=== PATIENT | female | born 1970 | race Native Hawaiian/Other Pacific Islander ===

== ENCOUNTER 2019-09-05 11:01 | Outpatient (CLI) | payer OTHER | END 2019-09-05 21:08 | disposition home or self-care (01) | LOC: RAD 11:01 | DX: M25.511 Pain in right shoulder (principal) ==

== ENCOUNTER 2020-01-20 12:21 | Outpatient (CLI) | payer OTHER | END 2020-01-20 23:31 | disposition home or self-care (01) | LOC: LABW 12:21 | DX: R50.9 Fever, unspecified (principal) | CPT/HCPCS: 87502 ==

== ENCOUNTER 2020-03-20 09:17 | Outpatient (CLI) | payer OTHER ==
[2020-03-20 10:32] LABS: PLATELET COUNT 37 K/uL (152-353)
[2020-03-20 10:49] LABS: POTASSIUM 3.6 mmol/L (3.6-5.2); SODIUM 138 mmol/L (136-145)
== END 2020-03-20 19:08 | disposition home or self-care (01) ==
LOC: LABW 09:17
PROVIDERS: Internal Medicine Endocrinology, Diabetes & Metabolism
DX: E05.90 Thyrotoxicosis, unspecified without thyrotoxic crisis or storm (principal); R00.0 Tachycardia, unspecified; R76.8 Other specified abnormal immunological findings in serum; E55.9 Vitamin D deficiency, unspecified
CPT/HCPCS: 36415; 80053; 82306; 84439; 84443; 84445; 84480; 85027

== ENCOUNTER 2020-04-17 13:20 | Outpatient (CLI) | payer OTHER ==
[2020-04-17 13:52] LABS: POTASSIUM 4.4 mmol/L (3.6-5.2)
[2020-04-17 15:08] LABS: PLATELET COUNT 39 K/uL (152-353)
== END 2020-04-17 20:37 | disposition home or self-care (01) ==
LOC: LABW 13:20
PROVIDERS: Internal Medicine Medical Oncology
DX: D61.818 Other pancytopenia (principal); R16.2 Hepatomegaly with splenomegaly, not elsewhere classified; R53.81 Other malaise; E53.8 Deficiency of other specified B group vitamins
CPT/HCPCS: 36415; 80053; 85007; 85027

== ENCOUNTER 2020-04-24 14:48 | Emergency (ER) | payer OTHER ==
[~2020-04-24] VITALS: Ht 152.4 cm; Wt 63.5 kg
[2020-04-24 14:54] VITALS: BP 131/71; TEMP 98
[2020-04-24 16:30] LABS: PLATELET COUNT 34 K/uL (152-353)
[2020-04-24 16:37] LABS: POTASSIUM 4.2 mmol/L (3.6-5.2)
== END 2020-04-24 17:37 | disposition home or self-care (01) ==
LOC: ED 14:48
PROVIDERS: Family Medicine
DX: S61.041A Puncture wound with foreign body of right thumb without damage to nail, initial encounter (principal); W46.0XXA Contact with hypodermic needle, initial encounter; D72.818 Other decreased white blood cell count; Y93.F9 Activity, other caregiving; Y92.89 Other specified places as the place of occurrence of the external cause
CPT/HCPCS: 80053; 85027; 87535; 90471; 90715; 99283

== ENCOUNTER 2020-05-28 09:15 | Outpatient (CLI) | payer OTHER ==
[2020-05-28 09:41] LABS: SODIUM 135 mmol/L (136-145)
[2020-05-28 10:08] LABS: PLATELET COUNT 31 K/uL (152-353)
== END 2020-05-28 19:15 | disposition home or self-care (01) ==
LOC: LABW 09:15
PROVIDERS: Internal Medicine Endocrinology, Diabetes & Metabolism
DX: E05.90 Thyrotoxicosis, unspecified without thyrotoxic crisis or storm (principal); R76.8 Other specified abnormal immunological findings in serum; E55.9 Vitamin D deficiency, unspecified; D69.6 Thrombocytopenia, unspecified; D61.818 Other pancytopenia; R16.2 Hepatomegaly with splenomegaly, not elsewhere classified; R53.81 Other malaise; E53.8 Deficiency of other specified B group vitamins
CPT/HCPCS: 36415; 80053; 84439; 84443; 84480; 85027

== ENCOUNTER 2020-06-06 13:41 | Outpatient (CLI) | payer OTHER | END 2020-06-06 21:31 | disposition home or self-care (01) | LOC: LABW 13:41 | DX: E05.90 Thyrotoxicosis, unspecified without thyrotoxic crisis or storm (principal); R76.8 Other specified abnormal immunological findings in serum; E55.9 Vitamin D deficiency, unspecified; D69.6 Thrombocytopenia, unspecified; D70.9 Neutropenia, unspecified | CPT/HCPCS: 36415; 84439; 84443; 84481 ==

== ENCOUNTER 2020-06-11 10:04 | Outpatient (CLI) | payer OTHER ==
[2020-06-11 10:36] LABS: POTASSIUM 4.3 mmol/L (3.6-5.2)
[2020-06-11 10:37] LABS: PLATELET COUNT 36 K/uL (152-353)
== END 2020-06-11 19:15 | disposition home or self-care (01) ==
LOC: LABW 10:04
PROVIDERS: Internal Medicine Medical Oncology
DX: D61.818 Other pancytopenia (principal); R16.2 Hepatomegaly with splenomegaly, not elsewhere classified; R53.81 Other malaise; E53.8 Deficiency of other specified B group vitamins
CPT/HCPCS: 36415; 80053; 85027

== ENCOUNTER 2020-06-21 14:00 | Outpatient (CLI) | payer OTHER | END 2020-06-21 21:53 | disposition home or self-care (01) | LOC: LABW 14:00 | DX: E05.90 Thyrotoxicosis, unspecified without thyrotoxic crisis or storm (principal); E04.1 Nontoxic single thyroid nodule; R76.8 Other specified abnormal immunological findings in serum; D69.6 Thrombocytopenia, unspecified; D70.9 Neutropenia, unspecified; E55.9 Vitamin D deficiency, unspecified | CPT/HCPCS: 36415; 84439; 84443; 84480 ==

== ENCOUNTER 2020-07-02 10:53 | Outpatient (CLI) | payer OTHER ==
[2020-07-02 11:13] LABS: PLATELET COUNT 51 K/uL (152-353)
[2020-07-02 11:21] LABS: POTASSIUM 3.9 mmol/L (3.6-5.2)
== END 2020-07-02 19:18 | disposition home or self-care (01) ==
LOC: LABW 10:53
PROVIDERS: Internal Medicine Medical Oncology
DX: D61.818 Other pancytopenia (principal); R16.2 Hepatomegaly with splenomegaly, not elsewhere classified; R53.81 Other malaise; E53.8 Deficiency of other specified B group vitamins
CPT/HCPCS: 36415; 80053; 85027

== ENCOUNTER 2020-07-18 09:00 | Outpatient (CLI) | payer OTHER ==
[2020-07-18 09:33] LABS: POTASSIUM 3.8 mmol/L (3.6-5.2)
[2020-07-18 10:15] LABS: PLATELET COUNT 36 K/uL (152-353)
== END 2020-07-18 19:03 | disposition home or self-care (01) ==
LOC: LABW 09:00
PROVIDERS: Internal Medicine Medical Oncology
DX: D61.818 Other pancytopenia (principal); R16.2 Hepatomegaly with splenomegaly, not elsewhere classified; R53.81 Other malaise; E53.8 Deficiency of other specified B group vitamins
CPT/HCPCS: 36415; 80053; 85027

== ENCOUNTER 2020-07-24 12:55 | Outpatient (CLI) | payer OTHER ==
[2020-07-24 13:29] LABS: POTASSIUM 3.7 mmol/L (3.6-5.2)
[2020-07-24 14:11] LABS: PLATELET COUNT 28 K/uL (152-353)
== END 2020-07-25 00:43 | disposition home or self-care (01) ==
LOC: LABW 12:55
PROVIDERS: Internal Medicine Medical Oncology
DX: D61.818 Other pancytopenia (principal); R16.2 Hepatomegaly with splenomegaly, not elsewhere classified; R53.81 Other malaise; E53.8 Deficiency of other specified B group vitamins
CPT/HCPCS: 36415; 80053; 85007; 85027

== ENCOUNTER 2020-07-30 14:16 | Outpatient (CLI) | payer OTHER ==
[2020-07-30 15:00] LABS: PLATELET COUNT 23 K/uL (152-353)
[2020-07-30 15:34] LABS: POTASSIUM 4.5 mmol/L (3.6-5.2)
== END 2020-07-30 19:14 | disposition home or self-care (01) ==
LOC: LABW 14:16
PROVIDERS: Internal Medicine Medical Oncology
DX: D61.818 Other pancytopenia (principal); R16.2 Hepatomegaly with splenomegaly, not elsewhere classified; R53.81 Other malaise; E53.8 Deficiency of other specified B group vitamins
CPT/HCPCS: 36415; 80053; 85027

== ENCOUNTER 2020-08-06 10:27 | Outpatient (CLI) | payer OTHER ==
[2020-08-06 10:56] LABS: PLATELET COUNT 26 K/uL (152-353)
== END 2020-08-06 22:30 | disposition home or self-care (01) ==
LOC: LABW 10:27
PROVIDERS: Internal Medicine Medical Oncology
DX: D61.818 Other pancytopenia (principal); R16.2 Hepatomegaly with splenomegaly, not elsewhere classified; R53.81 Other malaise; E53.8 Deficiency of other specified B group vitamins
CPT/HCPCS: 36415; 80053; 85027

== ENCOUNTER 2020-08-13 12:14 | Outpatient (CLI) | payer OTHER ==
[2020-08-13 12:54] LABS: PLATELET COUNT 30 K/uL (152-353)
[2020-08-13 13:08] LABS: POTASSIUM 4.2 mmol/L (3.6-5.2)
== END 2020-08-13 20:32 | disposition home or self-care (01) ==
LOC: LABW 12:14
PROVIDERS: Internal Medicine Medical Oncology
DX: E05.90 Thyrotoxicosis, unspecified without thyrotoxic crisis or storm (principal); R76.8 Other specified abnormal immunological findings in serum; D69.6 Thrombocytopenia, unspecified; D70.9 Neutropenia, unspecified; E55.9 Vitamin D deficiency, unspecified; D61.818 Other pancytopenia; R16.2 Hepatomegaly with splenomegaly, not elsewhere classified; R53.81 Other malaise; E53.8 Deficiency of other specified B group vitamins
CPT/HCPCS: 36415; 80053; 84439; 84443; 84480; 85027

== ENCOUNTER 2020-08-27 15:08 | Outpatient (CLI) | payer OTHER ==
[2020-08-27 15:33] LABS: PLATELET COUNT 26 K/uL (152-353)
== END 2020-08-27 19:12 | disposition home or self-care (01) ==
LOC: LABW 15:08
PROVIDERS: Internal Medicine Medical Oncology
DX: D61.818 Other pancytopenia (principal); D69.3 Immune thrombocytopenic purpura; R16.2 Hepatomegaly with splenomegaly, not elsewhere classified; R53.81 Other malaise; E53.8 Deficiency of other specified B group vitamins
CPT/HCPCS: 36415; 80053; 82728; 83540; 83550; 85007; 85027

== ENCOUNTER 2020-09-10 09:26 | Outpatient (CLI) | payer OTHER ==
[2020-09-10 10:15] LABS: POTASSIUM 3.9 mmol/L (3.6-5.2)
[2020-09-10 10:36] LABS: PLATELET COUNT 35 K/uL (152-353)
== END 2020-09-10 19:04 | disposition home or self-care (01) ==
LOC: LABW 09:26
PROVIDERS: ATTEND Internal Medicine Medical Oncology
DX: D61.818 Other pancytopenia (principal); D69.3 Immune thrombocytopenic purpura; R16.2 Hepatomegaly with splenomegaly, not elsewhere classified; R53.81 Other malaise; E53.8 Deficiency of other specified B group vitamins
CPT/HCPCS: 36415; 80053; 85027

== ENCOUNTER 2020-10-01 11:12 | Outpatient (CLI) | payer OTHER ==
[2020-10-01 11:24] LABS: PLATELET COUNT 43 K/uL (152-353)
== END 2020-10-01 21:29 | disposition home or self-care (01) ==
LOC: LABW 11:12
PROVIDERS: ATTEND Nurse Practitioner Adult Health
DX: D61.818 Other pancytopenia (principal); E53.8 Deficiency of other specified B group vitamins; R16.2 Hepatomegaly with splenomegaly, not elsewhere classified; R53.81 Other malaise; D69.3 Immune thrombocytopenic purpura
CPT/HCPCS: 36415; 80053; 82607; 82746; 85027

== ENCOUNTER 2021-02-21 08:41 | Outpatient (CLI) | payer OTHER ==
[2021-02-21 11:41] LABS: PLATELET COUNT 13 K/uL (152-353)
== END 2021-02-21 20:24 | disposition home or self-care (01) ==
LOC: LABW 08:41
PROVIDERS: ATTEND Internal Medicine Medical Oncology
DX: D61.818 Other pancytopenia (principal); D69.3 Immune thrombocytopenic purpura; R16.2 Hepatomegaly with splenomegaly, not elsewhere classified; R53.81 Other malaise; E53.8 Deficiency of other specified B group vitamins
CPT/HCPCS: 36415; 85007; 85027

== ENCOUNTER 2021-03-05 10:50 | Outpatient (CLI) | payer OTHER ==
[2021-03-05 11:17] LABS: POTASSIUM 4.5 mmol/L (3.6-5.2)
[2021-03-05 13:16] LABS: PLATELET COUNT 22 K/uL (152-353)
== END 2021-03-05 19:34 | disposition home or self-care (01) ==
LOC: LABW 10:50
PROVIDERS: ATTEND Internal Medicine Medical Oncology
DX: D61.9 Aplastic anemia, unspecified (principal); D69.3 Immune thrombocytopenic purpura; R16.2 Hepatomegaly with splenomegaly, not elsewhere classified; R53.81 Other malaise; E53.8 Deficiency of other specified B group vitamins
CPT/HCPCS: 36415; 80053; 80158; 85007; 85027

== ENCOUNTER 2021-03-28 09:06 | Outpatient (CLI) | payer OTHER ==
[2021-03-28 10:04] LABS: PLATELET COUNT 20 K/uL (152-353)
[2021-03-28 10:05] LABS: POTASSIUM 3.9 mmol/L (3.6-5.2)
== END 2021-03-28 22:41 | disposition home or self-care (01) ==
LOC: LABW 09:06
PROVIDERS: ATTEND Internal Medicine Medical Oncology
DX: D61.818 Other pancytopenia (principal); E53.8 Deficiency of other specified B group vitamins; R16.2 Hepatomegaly with splenomegaly, not elsewhere classified; R53.81 Other malaise; D69.3 Immune thrombocytopenic purpura
CPT/HCPCS: 36415; 80053; 85027

== ENCOUNTER 2021-04-01 09:22 | Outpatient (CLI) | payer OTHER ==
[2021-04-01 09:51] LABS: POTASSIUM 3.7 mmol/L (3.6-5.2)
[2021-04-01 09:58] LABS: PLATELET COUNT 22 K/uL (152-353)
== END 2021-04-01 19:58 | disposition home or self-care (01) ==
LOC: LABW 09:22
PROVIDERS: ATTEND Internal Medicine Medical Oncology
DX: D61.818 Other pancytopenia (principal); D69.3 Immune thrombocytopenic purpura; R16.2 Hepatomegaly with splenomegaly, not elsewhere classified; R53.81 Other malaise; E53.8 Deficiency of other specified B group vitamins
CPT/HCPCS: 36415; 80053; 85027

== ENCOUNTER 2021-04-02 09:12 | Outpatient (CLI) | payer OTHER | END 2021-04-02 19:20 | disposition home or self-care (01) | LOC: LABW 09:12 | PROVIDERS: ATTEND Internal Medicine Medical Oncology | DX: D61.818 Other pancytopenia (principal); D69.3 Immune thrombocytopenic purpura; R16.2 Hepatomegaly with splenomegaly, not elsewhere classified; R53.81 Other malaise; E53.8 Deficiency of other specified B group vitamins | CPT/HCPCS: 36415; 80158 ==

== ENCOUNTER 2021-04-04 09:17 | Outpatient (CLI) | payer OTHER ==
[2021-04-19 10:38] LABS: POTASSIUM 4.3 mmol/L (3.6-5.2)
[2021-04-19 13:26] LABS: PLATELET COUNT 23 K/uL (152-353)
== END 2021-04-04 16:00 | disposition home or self-care (01) ==
LOC: LABW 09:17
PROVIDERS: ATTEND Internal Medicine Medical Oncology
DX: D61.818 Other pancytopenia (principal); E53.8 Deficiency of other specified B group vitamins; R16.2 Hepatomegaly with splenomegaly, not elsewhere classified; R53.81 Other malaise; D69.3 Immune thrombocytopenic purpura
CPT/HCPCS: 36415; 80053; 85027

== ENCOUNTER 2021-04-25 07:51 | Outpatient (CLI) | payer OTHER ==
[2021-04-25 08:21] LABS: POTASSIUM 4.6 mmol/L (3.6-5.2)
[2021-04-25 08:24] LABS: PLATELET COUNT 39 K/uL (152-353)
== END 2021-04-25 19:41 | disposition home or self-care (01) ==
LOC: LABW 07:51
PROVIDERS: ATTEND Internal Medicine Medical Oncology
DX: D61.818 Other pancytopenia (principal); D51.9 Vitamin B12 deficiency anemia, unspecified; R16.2 Hepatomegaly with splenomegaly, not elsewhere classified; R53.81 Other malaise; D69.3 Immune thrombocytopenic purpura
CPT/HCPCS: 36415; 80053; 85027

== ENCOUNTER 2021-04-29 07:50 | Outpatient (CLI) | payer OTHER ==
[2021-04-29 08:04] LABS: PLATELET COUNT 37 K/uL (152-353)
[2021-04-29 08:29] LABS: POTASSIUM 4.6 mmol/L (3.6-5.2)
== END 2021-04-29 21:18 | disposition home or self-care (01) ==
LOC: LABW 07:50
PROVIDERS: ATTEND Internal Medicine Medical Oncology
DX: D61.818 Other pancytopenia (principal); E53.8 Deficiency of other specified B group vitamins; R16.2 Hepatomegaly with splenomegaly, not elsewhere classified; R53.81 Other malaise; D69.3 Immune thrombocytopenic purpura; C69.30 Malignant neoplasm of unspecified choroid
CPT/HCPCS: 36415; 80053; 80158; 84436; 84443; 84479; 85008; 85027

== ENCOUNTER 2021-05-02 08:57 | Outpatient (CLI) | payer OTHER ==
[2021-05-02 09:13] LABS: PLATELET COUNT 36 K/uL (152-353)
[2021-05-02 09:33] LABS: POTASSIUM 4.4 mmol/L (3.6-5.2)
== END 2021-05-02 19:08 | disposition home or self-care (01) ==
LOC: LABW 08:57
PROVIDERS: ATTEND Internal Medicine Medical Oncology
DX: C69.30 Malignant neoplasm of unspecified choroid (principal)
CPT/HCPCS: 36415; 80053; 80158; 85007; 85008; 85027

== ENCOUNTER 2021-07-12 13:26 | Outpatient (CLI) | payer OTHER ==
[2021-07-12 13:46] LABS: PLATELET COUNT 33 K/uL (152-353)
[2021-07-12 13:58] LABS: POTASSIUM 4.4 mmol/L (3.6-5.2)
== END 2021-07-12 21:43 | disposition home or self-care (01) ==
LOC: LABW 13:26
PROVIDERS: ATTEND Internal Medicine Medical Oncology
DX: D69.6 Thrombocytopenia, unspecified (principal); D61.818 Other pancytopenia; D69.3 Immune thrombocytopenic purpura; R16.2 Hepatomegaly with splenomegaly, not elsewhere classified; R53.81 Other malaise; E53.8 Deficiency of other specified B group vitamins
CPT/HCPCS: 36415; 80053; 85027

== ENCOUNTER 2021-07-15 08:26 | Outpatient (CLI) | payer OTHER ==
[2021-07-15 09:02] LABS: PLATELET COUNT 37 K/uL (152-353)
[2021-07-15 09:17] LABS: POTASSIUM 4.2 mmol/L (3.6-5.2)
== END 2021-07-15 19:22 | disposition home or self-care (01) ==
LOC: LABW 08:26
PROVIDERS: ATTEND Internal Medicine Medical Oncology
DX: D69.6 Thrombocytopenia, unspecified (principal); D61.818 Other pancytopenia; D69.3 Immune thrombocytopenic purpura; R16.2 Hepatomegaly with splenomegaly, not elsewhere classified; R53.81 Other malaise; E53.8 Deficiency of other specified B group vitamins
CPT/HCPCS: 36415; 80053; 80158; 85007; 85027

== ENCOUNTER 2021-07-22 08:24 | Outpatient (CLI) | payer OTHER ==
[2021-07-22 10:52] LABS: PLATELET COUNT 34 K/uL (152-353)
== END 2021-07-22 21:05 | disposition home or self-care (01) ==
LOC: LABW 08:24
PROVIDERS: ATTEND Internal Medicine Medical Oncology
DX: D61.818 Other pancytopenia (principal); D61.9 Aplastic anemia, unspecified; E53.8 Deficiency of other specified B group vitamins; R16.2 Hepatomegaly with splenomegaly, not elsewhere classified; R53.81 Other malaise; D69.3 Immune thrombocytopenic purpura; D69.6 Thrombocytopenia, unspecified
CPT/HCPCS: 36415; 80053; 80158; 85007; 85027

== ENCOUNTER 2021-07-25 08:44 | Outpatient (CLI) | payer OTHER ==
[2021-07-25 09:29] LABS: PLATELET COUNT 27 K/uL (152-353)
== END 2021-07-25 19:28 | disposition home or self-care (01) ==
LOC: LABW 08:44
PROVIDERS: ATTEND Internal Medicine Medical Oncology
DX: D61.818 Other pancytopenia (principal); E53.8 Deficiency of other specified B group vitamins; R16.2 Hepatomegaly with splenomegaly, not elsewhere classified; R53.81 Other malaise; D69.3 Immune thrombocytopenic purpura
CPT/HCPCS: 36415; 80053; 85027

== ENCOUNTER 2021-07-29 08:19 | Outpatient (CLI) | payer OTHER ==
[2021-07-29 08:58] LABS: PLATELET COUNT 51 K/uL (152-353)
[2021-07-29 09:47] LABS: POTASSIUM 4.4 mmol/L (3.6-5.2)
== END 2021-07-29 19:28 | disposition home or self-care (01) ==
LOC: LABW 08:19
PROVIDERS: ATTEND Nurse Practitioner Family
DX: D69.6 Thrombocytopenia, unspecified (principal); D61.818 Other pancytopenia; D69.3 Immune thrombocytopenic purpura; R16.2 Hepatomegaly with splenomegaly, not elsewhere classified; R53.81 Other malaise; E53.8 Deficiency of other specified B group vitamins
CPT/HCPCS: 36415; 80053; 80158; 85007; 85027

== ENCOUNTER 2021-08-01 08:42 | Outpatient (CLI) | payer OTHER ==
[2021-08-01 09:10] LABS: PLATELET COUNT 36 K/uL (152-353)
[2021-08-01 09:19] LABS: POTASSIUM 4.5 mmol/L (3.6-5.2)
== END 2021-08-01 19:22 | disposition home or self-care (01) ==
LOC: LABW 08:42
PROVIDERS: ATTEND Internal Medicine Medical Oncology
DX: D61.818 Other pancytopenia (principal); E53.8 Deficiency of other specified B group vitamins; R16.2 Hepatomegaly with splenomegaly, not elsewhere classified; R53.81 Other malaise; D69.3 Immune thrombocytopenic purpura
CPT/HCPCS: 36415; 80053; 85007; 85027

== ENCOUNTER 2021-08-05 08:42 | Outpatient (CLI) | payer OTHER ==
[2021-08-05 09:16] LABS: PLATELET COUNT 42 K/uL (152-353)
[2021-08-05 09:41] LABS: POTASSIUM 4.4 mmol/L (3.6-5.2)
== END 2021-08-05 20:03 | disposition home or self-care (01) ==
LOC: LABW 08:42
PROVIDERS: ATTEND Nurse Practitioner Family
DX: D69.6 Thrombocytopenia, unspecified (principal); D61.818 Other pancytopenia; D69.3 Immune thrombocytopenic purpura; R16.2 Hepatomegaly with splenomegaly, not elsewhere classified; R53.81 Other malaise; E53.8 Deficiency of other specified B group vitamins
CPT/HCPCS: 36415; 80053; 80158; 82728; 83540; 83550; 85007; 85027

== ENCOUNTER 2021-08-08 12:19 | Outpatient (CLI) | payer OTHER ==
[2021-08-08 13:00] LABS: PLATELET COUNT 34 K/uL (152-353)
[2021-08-08 13:09] LABS: POTASSIUM 4.3 mmol/L (3.6-5.2)
== END 2021-08-08 18:56 | disposition home or self-care (01) ==
LOC: LABW 12:19
PROVIDERS: ATTEND Internal Medicine Medical Oncology
DX: D69.6 Thrombocytopenia, unspecified (principal); D61.818 Other pancytopenia; D69.3 Immune thrombocytopenic purpura; R16.2 Hepatomegaly with splenomegaly, not elsewhere classified; R53.81 Other malaise; E53.8 Deficiency of other specified B group vitamins
CPT/HCPCS: 36415; 80053; 82248; 83010; 83615; 85007; 85027; 85044; 86880

== ENCOUNTER 2021-08-12 10:55 | Outpatient (CLI) | payer OTHER ==
[2021-08-12 11:30] LABS: POTASSIUM 3.7 mmol/L (3.6-5.2)
[2021-08-12 13:19] LABS: PLATELET COUNT 42 K/uL (152-353)
== END 2021-08-12 19:06 | disposition home or self-care (01) ==
LOC: LABW 10:55
PROVIDERS: ATTEND Internal Medicine Medical Oncology
DX: D69.6 Thrombocytopenia, unspecified (principal); D61.9 Aplastic anemia, unspecified; D69.3 Immune thrombocytopenic purpura; R16.2 Hepatomegaly with splenomegaly, not elsewhere classified; R53.81 Other malaise; E53.8 Deficiency of other specified B group vitamins
CPT/HCPCS: 36415; 80053; 80158; 85007; 85027

== ENCOUNTER 2021-08-15 10:21 | Outpatient (CLI) | payer OTHER ==
[2021-08-15 11:17] LABS: POTASSIUM 3.8 mmol/L (3.6-5.2)
[2021-08-15 11:47] LABS: PLATELET COUNT 57 K/uL (152-353)
== END 2021-08-15 20:01 | disposition home or self-care (01) ==
LOC: LABW 10:21
PROVIDERS: ATTEND Internal Medicine Medical Oncology
DX: D69.6 Thrombocytopenia, unspecified (principal); D61.818 Other pancytopenia; D69.3 Immune thrombocytopenic purpura; R16.2 Hepatomegaly with splenomegaly, not elsewhere classified; R53.81 Other malaise; E53.8 Deficiency of other specified B group vitamins
CPT/HCPCS: 36415; 80053; 80074; 82103; 82248; 82390; 82525; 82728; 83010; 83516; 83540; 83550; 85007; 85027; 86038; 86880

== ENCOUNTER 2021-08-19 08:54 | Outpatient (CLI) | payer OTHER ==
[2021-08-19 09:43] LABS: POTASSIUM 3.5 mmol/L (3.6-5.2)
[2021-08-19 11:16] LABS: PLATELET COUNT 56 K/uL (152-353)
== END 2021-08-19 19:21 | disposition home or self-care (01) ==
LOC: LABW 08:54
PROVIDERS: ATTEND Internal Medicine Medical Oncology
DX: D69.6 Thrombocytopenia, unspecified (principal); D61.9 Aplastic anemia, unspecified; D69.3 Immune thrombocytopenic purpura; R16.2 Hepatomegaly with splenomegaly, not elsewhere classified; R53.81 Other malaise; E53.8 Deficiency of other specified B group vitamins
CPT/HCPCS: 36415; 80053; 80158; 85007; 85027

== ENCOUNTER 2021-08-22 10:59 | Outpatient (CLI) | payer OTHER ==
[2021-08-22 11:22] LABS: PLATELET COUNT 46 K/uL (152-353)
[2021-08-22 11:37] LABS: POTASSIUM 4.6 mmol/L (3.6-5.2)
== END 2021-08-22 19:00 | disposition home or self-care (01) ==
LOC: LABW 10:59
PROVIDERS: ATTEND Internal Medicine Medical Oncology
DX: D61.818 Other pancytopenia (principal); E53.8 Deficiency of other specified B group vitamins; R16.2 Hepatomegaly with splenomegaly, not elsewhere classified; R53.81 Other malaise; D69.3 Immune thrombocytopenic purpura
CPT/HCPCS: 36415; 80053; 85008; 85027

== ENCOUNTER 2021-08-26 08:52 | Outpatient (CLI) | payer OTHER ==
[2021-08-26 10:30] LABS: PLATELET COUNT 50 K/uL (152-353)
[2021-08-26 10:57] LABS: POTASSIUM 3.9 mmol/L (3.6-5.2)
== END 2021-08-26 20:02 | disposition home or self-care (01) ==
LOC: LABW 08:52
PROVIDERS: ATTEND Internal Medicine Medical Oncology
DX: D69.6 Thrombocytopenia, unspecified (principal); D61.818 Other pancytopenia; D69.3 Immune thrombocytopenic purpura; R16.2 Hepatomegaly with splenomegaly, not elsewhere classified; R53.81 Other malaise; E53.8 Deficiency of other specified B group vitamins
CPT/HCPCS: 36415; 80053; 80158; 84436; 84439; 84443; 84479; 85027

== ENCOUNTER 2021-08-29 12:48 | Outpatient (CLI) | payer OTHER ==
[2021-08-29 13:04] LABS: PLATELET COUNT 49 K/uL (152-353)
[2021-08-29 13:12] LABS: POTASSIUM 3.7 mmol/L (3.6-5.2)
== END 2021-08-29 20:07 | disposition home or self-care (01) ==
LOC: LABW 12:48
PROVIDERS: ATTEND Internal Medicine Medical Oncology
DX: D61.818 Other pancytopenia (principal); E53.8 Deficiency of other specified B group vitamins; R16.2 Hepatomegaly with splenomegaly, not elsewhere classified; R53.81 Other malaise; D69.3 Immune thrombocytopenic purpura
CPT/HCPCS: 36415; 80053; 85027

== ENCOUNTER 2021-09-02 08:59 | Outpatient (CLI) | payer OTHER ==
[2021-09-02 09:34] LABS: PLATELET COUNT 57 K/uL (152-353)
[2021-09-02 09:45] LABS: POTASSIUM 3.5 mmol/L (3.6-5.2)
== END 2021-09-02 21:47 | disposition home or self-care (01) ==
LOC: LABW 08:59
PROVIDERS: ATTEND Internal Medicine Medical Oncology
DX: D69.6 Thrombocytopenia, unspecified (principal); D61.818 Other pancytopenia; D69.3 Immune thrombocytopenic purpura; R16.2 Hepatomegaly with splenomegaly, not elsewhere classified; R53.81 Other malaise; E53.8 Deficiency of other specified B group vitamins
CPT/HCPCS: 36415; 80053; 80158; 85007; 85027

== ENCOUNTER 2021-09-05 11:52 | Outpatient (CLI) | payer OTHER ==
[2021-09-05 12:30] LABS: POTASSIUM 3.9 mmol/L (3.6-5.2)
[2021-09-05 13:16] LABS: PLATELET COUNT 45 K/uL (152-353)
== END 2021-09-05 19:20 | disposition home or self-care (01) ==
LOC: LABW 11:52
PROVIDERS: ATTEND Internal Medicine Medical Oncology
DX: D69.6 Thrombocytopenia, unspecified (principal); D61.818 Other pancytopenia; D69.3 Immune thrombocytopenic purpura; R16.2 Hepatomegaly with splenomegaly, not elsewhere classified; R53.81 Other malaise; E53.8 Deficiency of other specified B group vitamins
CPT/HCPCS: 36415; 80053; 85008; 85027

== ENCOUNTER 2021-09-09 08:32 | Outpatient (CLI) | payer OTHER ==
[2021-09-09 08:59] LABS: PLATELET COUNT 42 K/uL (152-353)
[2021-09-09 09:07] LABS: POTASSIUM 3.7 mmol/L (3.6-5.2)
== END 2021-09-09 19:33 | disposition home or self-care (01) ==
LOC: LABW 08:32
PROVIDERS: ATTEND Internal Medicine Medical Oncology
DX: D69.6 Thrombocytopenia, unspecified (principal); R74.01 Elevation of levels of liver transaminase levels; D61.818 Other pancytopenia; R79.89 Other specified abnormal findings of blood chemistry; T45.1X5A Adverse effect of antineoplastic and immunosuppressive drugs, initial encounter; D69.3 Immune thrombocytopenic purpura; R16.2 Hepatomegaly with splenomegaly, not elsewhere classified; R53.81 Other malaise; E53.8 Deficiency of other specified B group vitamins
CPT/HCPCS: 36415; 80053; 80158; 85008; 85027

== ENCOUNTER 2021-09-17 09:01 | Outpatient (CLI) | payer OTHER ==
[2021-09-17 09:36] LABS: PLATELET COUNT 27 K/uL (152-353)
[2021-09-17 09:44] LABS: POTASSIUM 4.4 mmol/L (3.6-5.2)
== END 2021-09-17 19:03 | disposition home or self-care (01) ==
LOC: LABW 09:01
PROVIDERS: ATTEND Internal Medicine Medical Oncology
DX: D61.818 Other pancytopenia (principal); R74.01 Elevation of levels of liver transaminase levels; D69.6 Thrombocytopenia, unspecified; E53.8 Deficiency of other specified B group vitamins; R16.2 Hepatomegaly with splenomegaly, not elsewhere classified; R53.81 Other malaise; D69.3 Immune thrombocytopenic purpura; R79.89 Other specified abnormal findings of blood chemistry; T45.1X5A Adverse effect of antineoplastic and immunosuppressive drugs, initial encounter
CPT/HCPCS: 36415; 80053; 80158; 84443; 85008; 85027

== ENCOUNTER 2021-09-19 10:40 | Outpatient (CLI) | payer OTHER ==
[2021-09-19 10:58] LABS: POTASSIUM 4.1 mmol/L (3.6-5.2)
[2021-09-19 10:59] LABS: PLATELET COUNT 28 K/uL (152-353)
== END 2021-09-19 18:59 | disposition home or self-care (01) ==
LOC: LABW 10:40
PROVIDERS: ATTEND Internal Medicine Medical Oncology
DX: D61.818 Other pancytopenia (principal); E53.8 Deficiency of other specified B group vitamins; R16.2 Hepatomegaly with splenomegaly, not elsewhere classified; R53.81 Other malaise; D69.3 Immune thrombocytopenic purpura
CPT/HCPCS: 36415; 80053; 85027

== ENCOUNTER 2021-09-23 10:48 | Outpatient (CLI) | payer OTHER ==
[2021-09-23 11:18] LABS: POTASSIUM 3.8 mmol/L (3.6-5.2)
[2021-09-23 11:40] LABS: PLATELET COUNT 12 K/uL (152-353)
== END 2021-09-23 19:20 | disposition home or self-care (01) ==
LOC: LABW 10:48
PROVIDERS: ATTEND Internal Medicine Medical Oncology
DX: D69.6 Thrombocytopenia, unspecified (principal); R74.01 Elevation of levels of liver transaminase levels; D61.818 Other pancytopenia; R79.89 Other specified abnormal findings of blood chemistry; T45.1X5A Adverse effect of antineoplastic and immunosuppressive drugs, initial encounter; D69.3 Immune thrombocytopenic purpura; R16.2 Hepatomegaly with splenomegaly, not elsewhere classified; R53.81 Other malaise; E53.8 Deficiency of other specified B group vitamins
CPT/HCPCS: 36415; 80053; 80158; 85027

== ENCOUNTER 2021-09-26 13:20 | Outpatient (CLI) | payer OTHER ==
[2021-09-26 13:59] LABS: PLATELET COUNT 44 K/uL (152-353)
== END 2021-09-26 18:57 | disposition home or self-care (01) ==
LOC: LABW 13:20
PROVIDERS: ATTEND Internal Medicine Medical Oncology
DX: D61.818 Other pancytopenia (principal); E53.8 Deficiency of other specified B group vitamins; R16.2 Hepatomegaly with splenomegaly, not elsewhere classified; R53.81 Other malaise; D69.3 Immune thrombocytopenic purpura
CPT/HCPCS: 36415; 80053; 85008; 85027

== ENCOUNTER → 2021-09-30 | Outpatient (CLI) | payer OTHER ==
[2021-09-30 10:04] LABS: POTASSIUM 3.8 mmol/L (3.6-5.2)
[2021-09-30 10:11] LABS: PLATELET COUNT 33 K/uL (152-353)
== END ==
LOC: LABW 09:42
PROVIDERS: ATTEND Internal Medicine Medical Oncology
DX: D69.6 Thrombocytopenia, unspecified (principal); R74.01 Elevation of levels of liver transaminase levels; D61.818 Other pancytopenia; R79.89 Other specified abnormal findings of blood chemistry; T45.1X5A Adverse effect of antineoplastic and immunosuppressive drugs, initial encounter; D69.3 Immune thrombocytopenic purpura; R16.2 Hepatomegaly with splenomegaly, not elsewhere classified; R53.81 Other malaise; E53.8 Deficiency of other specified B group vitamins
CPT/HCPCS: 36415; 80053; 80158; 85027

== ENCOUNTER 2021-10-02 13:17 | Outpatient (CLI) | payer OTHER ==
[2021-10-02 13:39] LABS: POTASSIUM 3.8 mmol/L (3.6-5.2)
[2021-10-02 13:41] LABS: PLATELET COUNT 23 K/uL (152-353)
== END 2021-10-02 20:22 | disposition home or self-care (01) ==
LOC: LABW 13:17
PROVIDERS: ATTEND Internal Medicine Medical Oncology
DX: D61.818 Other pancytopenia (principal); E53.8 Deficiency of other specified B group vitamins; R16.2 Hepatomegaly with splenomegaly, not elsewhere classified; R53.81 Other malaise; D69.3 Immune thrombocytopenic purpura
CPT/HCPCS: 36415; 80053; 85027

== ENCOUNTER 2021-10-07 08:53 | Outpatient (CLI) | payer OTHER ==
[2021-10-07 09:47] LABS: POTASSIUM 3.9 mmol/L (3.6-5.2)
[2021-10-07 10:28] LABS: PLATELET COUNT 24 K/uL (152-353)
== END 2021-10-07 18:58 | disposition home or self-care (01) ==
LOC: LABW 08:53
PROVIDERS: ATTEND Internal Medicine Medical Oncology
DX: D69.6 Thrombocytopenia, unspecified (principal); R74.01 Elevation of levels of liver transaminase levels; D61.818 Other pancytopenia; R79.89 Other specified abnormal findings of blood chemistry; T45.1X5A Adverse effect of antineoplastic and immunosuppressive drugs, initial encounter; D69.3 Immune thrombocytopenic purpura; R16.2 Hepatomegaly with splenomegaly, not elsewhere classified; R53.81 Other malaise; E53.8 Deficiency of other specified B group vitamins
CPT/HCPCS: 36415; 80053; 80074; 80158; 85027; 86038

== ENCOUNTER 2021-10-10 10:15 | Outpatient (CLI) | payer OTHER ==
[2021-10-10 10:29] LABS: PLATELET COUNT 30 K/uL (152-353)
[2021-10-10 10:34] LABS: POTASSIUM 4.3 mmol/L (3.6-5.2)
== END 2021-10-10 19:25 | disposition home or self-care (01) ==
LOC: LABW 10:15
PROVIDERS: ATTEND Internal Medicine Medical Oncology
DX: D61.818 Other pancytopenia (principal); E53.8 Deficiency of other specified B group vitamins; R16.2 Hepatomegaly with splenomegaly, not elsewhere classified; R53.81 Other malaise; D69.3 Immune thrombocytopenic purpura
CPT/HCPCS: 36415; 80053; 85027

== ENCOUNTER 2021-10-14 08:25 | Outpatient (CLI) | payer OTHER ==
[2021-10-14 08:50] LABS: PLATELET COUNT 26 K/uL (152-353)
== END 2021-10-14 18:51 | disposition home or self-care (01) ==
LOC: LABW 08:25
PROVIDERS: ATTEND Internal Medicine Medical Oncology
DX: D69.6 Thrombocytopenia, unspecified (principal); R74.01 Elevation of levels of liver transaminase levels; D61.818 Other pancytopenia; R79.89 Other specified abnormal findings of blood chemistry; T45.1X5A Adverse effect of antineoplastic and immunosuppressive drugs, initial encounter; D69.3 Immune thrombocytopenic purpura; R16.2 Hepatomegaly with splenomegaly, not elsewhere classified; R53.81 Other malaise; E53.8 Deficiency of other specified B group vitamins
CPT/HCPCS: 36415; 80053; 80158; 85027

== ENCOUNTER 2021-10-16 13:35 | Outpatient (CLI) | payer OTHER ==
[2021-10-16 14:07] LABS: PLATELET COUNT 30 K/uL (152-353)
== END 2021-10-16 21:26 | disposition home or self-care (01) ==
LOC: LABW 13:35
PROVIDERS: ATTEND Internal Medicine Medical Oncology
DX: D69.6 Thrombocytopenia, unspecified (principal); D61.818 Other pancytopenia; D69.3 Immune thrombocytopenic purpura; R16.2 Hepatomegaly with splenomegaly, not elsewhere classified; R53.81 Other malaise; E53.8 Deficiency of other specified B group vitamins
CPT/HCPCS: 36415; 80053; 85008; 85027

== ENCOUNTER 2021-10-21 07:57 | Outpatient (CLI) | payer BC ==
[2021-10-21 08:31] LABS: POTASSIUM 4.2 mmol/L (3.6-5.2)
[2021-10-21 09:02] LABS: PLATELET COUNT 26 K/uL (152-353)
== END 2021-10-21 18:48 | disposition home or self-care (01) ==
LOC: LAB 07:57
PROVIDERS: ATTEND Nurse Practitioner Family
DX: D69.6 Thrombocytopenia, unspecified (principal); R74.01 Elevation of levels of liver transaminase levels; D61.818 Other pancytopenia; R79.89 Other specified abnormal findings of blood chemistry; T45.1X5A Adverse effect of antineoplastic and immunosuppressive drugs, initial encounter; D69.3 Immune thrombocytopenic purpura; R16.2 Hepatomegaly with splenomegaly, not elsewhere classified; R53.81 Other malaise; E53.8 Deficiency of other specified B group vitamins
CPT/HCPCS: 36415; 80053; 80158; 85008; 85027

== ENCOUNTER 2021-10-24 12:24 | Outpatient (CLI) | payer BC ==
[2021-10-24 13:25] LABS: PLATELET COUNT 33 K/uL (152-353)
== END 2021-10-24 19:15 | disposition home or self-care (01) ==
LOC: LABW 12:24
PROVIDERS: ATTEND Nurse Practitioner Family
DX: D69.6 Thrombocytopenia, unspecified (principal); R74.01 Elevation of levels of liver transaminase levels; D61.818 Other pancytopenia; R79.89 Other specified abnormal findings of blood chemistry; T45.1X5A Adverse effect of antineoplastic and immunosuppressive drugs, initial encounter; D69.3 Immune thrombocytopenic purpura; R16.2 Hepatomegaly with splenomegaly, not elsewhere classified; R53.81 Other malaise; E53.8 Deficiency of other specified B group vitamins
CPT/HCPCS: 36415; 80053; 85027

== ENCOUNTER 2021-10-28 07:31 | Outpatient (CLI) | payer BC ==
[2021-10-28 08:13] LABS: PLATELET COUNT 40 K/uL (152-353)
[2021-10-28 08:18] LABS: POTASSIUM 4.3 mmol/L (3.6-5.2)
== END 2021-10-28 19:28 | disposition home or self-care (01) ==
LOC: LABW 07:31
PROVIDERS: ATTEND Internal Medicine Medical Oncology
DX: D69.6 Thrombocytopenia, unspecified (principal); R74.01 Elevation of levels of liver transaminase levels; D61.818 Other pancytopenia; R79.89 Other specified abnormal findings of blood chemistry; T45.1X5A Adverse effect of antineoplastic and immunosuppressive drugs, initial encounter; D69.3 Immune thrombocytopenic purpura; R16.2 Hepatomegaly with splenomegaly, not elsewhere classified; R53.81 Other malaise; E53.8 Deficiency of other specified B group vitamins
CPT/HCPCS: 36415; 80053; 80158; 85027

== ENCOUNTER 2021-10-31 09:14 | Outpatient (CLI) | payer BC ==
[2021-10-31 10:02] LABS: PLATELET COUNT 30 K/uL (152-353)
[2021-10-31 10:12] LABS: POTASSIUM 4.6 mmol/L (3.6-5.2)
== END 2021-10-31 18:51 | disposition home or self-care (01) ==
LOC: LABW 09:14
PROVIDERS: ATTEND Nurse Practitioner Family
DX: D69.6 Thrombocytopenia, unspecified (principal); D61.9 Aplastic anemia, unspecified; R74.01 Elevation of levels of liver transaminase levels; D61.818 Other pancytopenia; R79.89 Other specified abnormal findings of blood chemistry; T45.1X5A Adverse effect of antineoplastic and immunosuppressive drugs, initial encounter; D69.3 Immune thrombocytopenic purpura; R16.2 Hepatomegaly with splenomegaly, not elsewhere classified; R53.81 Other malaise; E53.8 Deficiency of other specified B group vitamins; X58.XXXA Exposure to other specified factors, initial encounter; Y93.89 Activity, other specified; Y92.89 Other specified places as the place of occurrence of the external cause
CPT/HCPCS: 36415; 80053; 85008; 85027

== ENCOUNTER 2021-11-04 08:05 | Outpatient (CLI) | payer BC ==
[2021-11-04 08:44] LABS: POTASSIUM 4.6 mmol/L (3.6-5.2)
[2021-11-04 09:20] LABS: PLATELET COUNT 28 K/uL (152-353)
== END 2021-11-04 20:22 | disposition home or self-care (01) ==
LOC: LABW 08:05
PROVIDERS: ATTEND Internal Medicine Medical Oncology
DX: D61.818 Other pancytopenia (principal); R74.01 Elevation of levels of liver transaminase levels; D69.6 Thrombocytopenia, unspecified; E53.8 Deficiency of other specified B group vitamins; R16.2 Hepatomegaly with splenomegaly, not elsewhere classified; R53.81 Other malaise; D69.3 Immune thrombocytopenic purpura; R79.89 Other specified abnormal findings of blood chemistry; T45.1X5A Adverse effect of antineoplastic and immunosuppressive drugs, initial encounter
CPT/HCPCS: 36415; 80053; 80158; 85007; 85027

== ENCOUNTER 2021-11-07 07:30 | Outpatient (CLI) | payer BC ==
[2021-11-07 08:33] LABS: PLATELET COUNT 31 K/uL (152-353)
[2021-11-07 08:52] LABS: POTASSIUM 4.5 mmol/L (3.6-5.2)
== END 2021-11-07 18:51 | disposition home or self-care (01) ==
LOC: LABW 07:30
PROVIDERS: ATTEND Internal Medicine Gastroenterology
DX: R94.5 Abnormal results of liver function studies (principal); D61.818 Other pancytopenia; R74.01 Elevation of levels of liver transaminase levels; D69.6 Thrombocytopenia, unspecified; E53.8 Deficiency of other specified B group vitamins; R16.2 Hepatomegaly with splenomegaly, not elsewhere classified; R53.81 Other malaise; D69.3 Immune thrombocytopenic purpura; R79.89 Other specified abnormal findings of blood chemistry; T45.1X5A Adverse effect of antineoplastic and immunosuppressive drugs, initial encounter
CPT/HCPCS: 36415; 80053; 82103; 82172; 82247; 82248; 82390; 82465; 82525; 82728; 82947; 82977; 83010; 83516; 83540; 83550; 83883; 84450; 84460; 84466; 84478; 85008; 85027; 85610; 86038; 86706; 86707; 87340; 87350; 87517

== ENCOUNTER 2021-11-11 08:19 | Outpatient (CLI) | payer BC ==
[2021-11-11 08:48] LABS: POTASSIUM 4.3 mmol/L (3.6-5.2)
[2021-11-11 09:03] LABS: PLATELET COUNT 36 K/uL (152-353)
== END 2021-11-11 20:51 | disposition home or self-care (01) ==
LOC: LABW 08:19
PROVIDERS: ATTEND Internal Medicine Medical Oncology
DX: D61.818 Other pancytopenia (principal); R74.01 Elevation of levels of liver transaminase levels; D69.6 Thrombocytopenia, unspecified; E53.8 Deficiency of other specified B group vitamins; R16.2 Hepatomegaly with splenomegaly, not elsewhere classified; R53.81 Other malaise; D69.3 Immune thrombocytopenic purpura; R79.89 Other specified abnormal findings of blood chemistry; T45.1X5A Adverse effect of antineoplastic and immunosuppressive drugs, initial encounter
CPT/HCPCS: 36415; 80053; 80158; 85007; 85027

== ENCOUNTER 2021-11-14 10:20 | Outpatient (CLI) | payer BC ==
[2021-11-14 11:05] LABS: POTASSIUM 4.5 mmol/L (3.6-5.2)
[2021-11-14 11:28] LABS: PLATELET COUNT 30 K/uL (152-353)
== END 2021-11-14 20:46 | disposition home or self-care (01) ==
LOC: LABW 10:20
PROVIDERS: ATTEND Internal Medicine Medical Oncology
DX: D61.818 Other pancytopenia (principal); R74.01 Elevation of levels of liver transaminase levels; D69.6 Thrombocytopenia, unspecified; E53.8 Deficiency of other specified B group vitamins; R16.2 Hepatomegaly with splenomegaly, not elsewhere classified; R53.81 Other malaise; D69.3 Immune thrombocytopenic purpura; R79.89 Other specified abnormal findings of blood chemistry; T45.1X5A Adverse effect of antineoplastic and immunosuppressive drugs, initial encounter
CPT/HCPCS: 36415; 80053; 80158; 85007; 85027

== ENCOUNTER 2022-02-10 08:34 | Outpatient (CLI) | payer BC ==
[2022-02-10 08:48] LABS: PLATELET COUNT 34 K/uL (152-353)
[2022-02-10 09:01] LABS: POTASSIUM 3.6 mmol/L (3.6-5.2)
== END 2022-02-10 20:43 | disposition home or self-care (01) ==
LOC: LABW 08:34
PROVIDERS: ATTEND Nurse Practitioner Family
DX: D46.9 Myelodysplastic syndrome, unspecified (principal); R79.89 Other specified abnormal findings of blood chemistry; T45.1X5A Adverse effect of antineoplastic and immunosuppressive drugs, initial encounter; D69.6 Thrombocytopenia, unspecified; D61.9 Aplastic anemia, unspecified; R74.01 Elevation of levels of liver transaminase levels; D69.3 Immune thrombocytopenic purpura; R16.2 Hepatomegaly with splenomegaly, not elsewhere classified; R53.81 Other malaise; E53.8 Deficiency of other specified B group vitamins
CPT/HCPCS: 36415; 80053; 80158; 85007; 85027

== ENCOUNTER 2022-02-24 12:22 | Outpatient (CLI) | payer BC ==
[2022-02-24 13:35] LABS: PLATELET COUNT 42 K/uL (152-353)
[2022-02-24 14:02] LABS: POTASSIUM 4.4 mmol/L (3.6-5.2)
== END 2022-02-24 19:02 | disposition home or self-care (01) ==
LOC: LABW 12:22
PROVIDERS: ATTEND Nurse Practitioner Family
DX: D64.9 Anemia, unspecified (principal); R79.89 Other specified abnormal findings of blood chemistry; T45.1X5A Adverse effect of antineoplastic and immunosuppressive drugs, initial encounter; D69.6 Thrombocytopenia, unspecified; D61.9 Aplastic anemia, unspecified; R74.01 Elevation of levels of liver transaminase levels; D69.3 Immune thrombocytopenic purpura; R16.2 Hepatomegaly with splenomegaly, not elsewhere classified; R53.81 Other malaise; E53.8 Deficiency of other specified B group vitamins
CPT/HCPCS: 36415; 80053; 80158; 85007; 85027

== ENCOUNTER 2022-04-08 08:56 | Outpatient (CLI) | payer BC ==
[2022-04-08 10:09] LABS: POTASSIUM 4.2 mmol/L (3.6-5.2)
[2022-04-08 10:19] LABS: PLATELET COUNT 33 K/uL (152-353)
== END 2022-04-08 19:12 | disposition home or self-care (01) ==
LOC: LABW 08:56
PROVIDERS: ATTEND Nurse Practitioner Family
DX: D46.9 Myelodysplastic syndrome, unspecified (principal); D50.8 Other iron deficiency anemias; R79.89 Other specified abnormal findings of blood chemistry; T45.1X5A Adverse effect of antineoplastic and immunosuppressive drugs, initial encounter; D69.6 Thrombocytopenia, unspecified; D61.9 Aplastic anemia, unspecified; R74.01 Elevation of levels of liver transaminase levels; D69.3 Immune thrombocytopenic purpura; R16.2 Hepatomegaly with splenomegaly, not elsewhere classified; R53.81 Other malaise; E53.8 Deficiency of other specified B group vitamins
CPT/HCPCS: 36415; 80053; 82180; 82607; 82746; 84207; 84425; 84436; 84443; 84479; 84480; 85007; 85027

== ENCOUNTER 2022-04-14 13:56 | Outpatient (CLI) | payer BC ==
[2022-04-14 14:15] LABS: PLATELET COUNT 28 K/uL (152-353)
[2022-04-14 14:17] LABS: POTASSIUM 5.1 mmol/L (3.6-5.2)
== END 2022-04-14 19:51 | disposition home or self-care (01) ==
LOC: LABW 13:56
PROVIDERS: ATTEND Nurse Practitioner Family
DX: D46.9 Myelodysplastic syndrome, unspecified (principal); D50.9 Iron deficiency anemia, unspecified; R79.89 Other specified abnormal findings of blood chemistry; T45.1X5A Adverse effect of antineoplastic and immunosuppressive drugs, initial encounter; D69.6 Thrombocytopenia, unspecified; D61.9 Aplastic anemia, unspecified; R74.01 Elevation of levels of liver transaminase levels; D69.3 Immune thrombocytopenic purpura; R16.2 Hepatomegaly with splenomegaly, not elsewhere classified; R53.81 Other malaise; E53.8 Deficiency of other specified B group vitamins
CPT/HCPCS: 36415; 80053; 80158; 85027

== ENCOUNTER 2022-04-22 12:43 | Outpatient (CLI) | payer BC ==
[2022-04-22 13:07] LABS: POTASSIUM 4.6 mmol/L (3.6-5.2)
[2022-04-22 13:16] LABS: PLATELET COUNT 29 K/uL (152-353)
== END 2022-04-22 18:54 | disposition home or self-care (01) ==
LOC: LABW 12:43
PROVIDERS: ATTEND Internal Medicine Hematology & Oncology
DX: D46.9 Myelodysplastic syndrome, unspecified (principal); D50.8 Other iron deficiency anemias; R79.89 Other specified abnormal findings of blood chemistry; T45.1X5A Adverse effect of antineoplastic and immunosuppressive drugs, initial encounter; D69.6 Thrombocytopenia, unspecified; D61.9 Aplastic anemia, unspecified; R74.01 Elevation of levels of liver transaminase levels; D69.3 Immune thrombocytopenic purpura; R16.2 Hepatomegaly with splenomegaly, not elsewhere classified; R53.81 Other malaise; E53.8 Deficiency of other specified B group vitamins
CPT/HCPCS: 36415; 80053; 80158; 85027

== ENCOUNTER 2022-05-06 08:32 | Outpatient (CLI) | payer BC ==
[2022-05-06 09:01] LABS: PLATELET COUNT 26 K/uL (152-353)
[2022-05-06 09:03] LABS: POTASSIUM 4.7 mmol/L (3.6-5.2)
== END 2022-05-06 18:51 | disposition home or self-care (01) ==
LOC: LABW 08:32
PROVIDERS: ATTEND Nurse Practitioner Family
DX: D46.9 Myelodysplastic syndrome, unspecified (principal); D50.9 Iron deficiency anemia, unspecified; R79.89 Other specified abnormal findings of blood chemistry; T45.1X5A Adverse effect of antineoplastic and immunosuppressive drugs, initial encounter; D69.6 Thrombocytopenia, unspecified; D61.9 Aplastic anemia, unspecified; R74.01 Elevation of levels of liver transaminase levels; D69.3 Immune thrombocytopenic purpura; R16.2 Hepatomegaly with splenomegaly, not elsewhere classified; R53.81 Other malaise; E53.8 Deficiency of other specified B group vitamins
CPT/HCPCS: 36415; 80053; 80158; 85027

== ENCOUNTER 2022-05-12 12:32 | Outpatient (CLI) | payer BC ==
[2022-05-12 13:18] LABS: PLATELET COUNT 32 K/uL (152-353)
[2022-05-12 13:29] LABS: POTASSIUM 4.3 mmol/L (3.6-5.2)
== END 2022-05-12 19:12 | disposition home or self-care (01) ==
LOC: LABW 12:32
PROVIDERS: ATTEND Internal Medicine Hematology & Oncology
DX: D46.9 Myelodysplastic syndrome, unspecified (principal); E53.8 Deficiency of other specified B group vitamins; R16.2 Hepatomegaly with splenomegaly, not elsewhere classified; R53.81 Other malaise; D69.3 Immune thrombocytopenic purpura; R74.01 Elevation of levels of liver transaminase levels; D61.9 Aplastic anemia, unspecified; D69.6 Thrombocytopenia, unspecified; R79.89 Other specified abnormal findings of blood chemistry; T45.1X5A Adverse effect of antineoplastic and immunosuppressive drugs, initial encounter; D50.9 Iron deficiency anemia, unspecified
CPT/HCPCS: 36415; 80053; 80158; 85027

== ENCOUNTER 2022-05-19 14:35 | Outpatient (CLI) | payer BC ==
[2022-05-19 15:06] LABS: POTASSIUM 4.1 mmol/L (3.6-5.2)
[2022-05-19 15:16] LABS: PLATELET COUNT 35 K/uL (152-353)
== END 2022-05-19 19:02 | disposition home or self-care (01) ==
LOC: LABW 14:35
PROVIDERS: ATTEND Internal Medicine Medical Oncology
DX: D69.6 Thrombocytopenia, unspecified (principal); R74.01 Elevation of levels of liver transaminase levels; D61.818 Other pancytopenia; R79.89 Other specified abnormal findings of blood chemistry; T45.1X5A Adverse effect of antineoplastic and immunosuppressive drugs, initial encounter; D69.3 Immune thrombocytopenic purpura; R16.2 Hepatomegaly with splenomegaly, not elsewhere classified; R53.81 Other malaise; E53.8 Deficiency of other specified B group vitamins
CPT/HCPCS: 36415; 80053; 80158; 85027

== ENCOUNTER 2022-05-26 11:20 | Outpatient (CLI) | payer BC ==
[2022-05-26 11:51] LABS: POTASSIUM 4.5 mmol/L (3.6-5.2)
[2022-05-26 13:18] LABS: PLATELET COUNT 27 K/uL (152-353)
== END 2022-05-26 18:59 | disposition home or self-care (01) ==
LOC: LABW 11:20
PROVIDERS: ATTEND Internal Medicine Hematology & Oncology
DX: D46.9 Myelodysplastic syndrome, unspecified (principal); E53.8 Deficiency of other specified B group vitamins; R16.2 Hepatomegaly with splenomegaly, not elsewhere classified; R53.81 Other malaise; D69.3 Immune thrombocytopenic purpura; R74.01 Elevation of levels of liver transaminase levels; D61.9 Aplastic anemia, unspecified; D69.6 Thrombocytopenia, unspecified; R79.89 Other specified abnormal findings of blood chemistry; T45.1X5A Adverse effect of antineoplastic and immunosuppressive drugs, initial encounter
CPT/HCPCS: 36415; 80053; 80158; 85027

== ENCOUNTER 2022-05-29 10:11 | Outpatient (CLI) | payer BC ==
[2022-05-29 11:07] LABS: PLATELET COUNT 30 K/uL (152-353)
[2022-05-29 11:21] LABS: POTASSIUM 4.7 mmol/L (3.6-5.2)
== END 2022-05-29 19:27 | disposition home or self-care (01) ==
LOC: LABW 10:11
PROVIDERS: ATTEND Internal Medicine Hematology & Oncology
DX: D46.9 Myelodysplastic syndrome, unspecified (principal); E53.8 Deficiency of other specified B group vitamins; R16.2 Hepatomegaly with splenomegaly, not elsewhere classified; R53.81 Other malaise; D69.3 Immune thrombocytopenic purpura; R74.01 Elevation of levels of liver transaminase levels; D61.9 Aplastic anemia, unspecified; D69.6 Thrombocytopenia, unspecified; R79.89 Other specified abnormal findings of blood chemistry; T45.1X5A Adverse effect of antineoplastic and immunosuppressive drugs, initial encounter; D50.8 Other iron deficiency anemias
CPT/HCPCS: 36415; 80053; 85027

== ENCOUNTER 2022-06-02 14:52 | Outpatient (CLI) | payer BC ==
[2022-06-02 15:42] LABS: POTASSIUM 4.6 mmol/L (3.6-5.2)
[2022-06-02 15:43] LABS: PLATELET COUNT 22 K/uL (152-353)
== END 2022-06-02 19:37 | disposition home or self-care (01) ==
LOC: LABW 14:52
PROVIDERS: ATTEND Internal Medicine Hematology & Oncology
DX: D46.9 Myelodysplastic syndrome, unspecified (principal); E53.8 Deficiency of other specified B group vitamins; R16.2 Hepatomegaly with splenomegaly, not elsewhere classified; R53.81 Other malaise; D69.3 Immune thrombocytopenic purpura; R74.01 Elevation of levels of liver transaminase levels; D61.9 Aplastic anemia, unspecified; D69.6 Thrombocytopenia, unspecified; R79.89 Other specified abnormal findings of blood chemistry; T45.1X5A Adverse effect of antineoplastic and immunosuppressive drugs, initial encounter; D50.8 Other iron deficiency anemias
CPT/HCPCS: 36415; 80053; 85027

== ENCOUNTER 2022-06-05 13:58 | Outpatient (CLI) | payer BC ==
[2022-06-05 14:27] LABS: PLATELET COUNT 25 K/uL (152-353)
[2022-06-05 14:29] LABS: POTASSIUM 4.5 mmol/L (3.6-5.2)
== END 2022-06-05 22:35 | disposition home or self-care (01) ==
LOC: LABW 13:58
PROVIDERS: ATTEND Internal Medicine Hematology & Oncology
DX: D46.9 Myelodysplastic syndrome, unspecified (principal); E53.8 Deficiency of other specified B group vitamins; R16.2 Hepatomegaly with splenomegaly, not elsewhere classified; R53.81 Other malaise; D69.3 Immune thrombocytopenic purpura; R74.01 Elevation of levels of liver transaminase levels; D61.9 Aplastic anemia, unspecified; D69.6 Thrombocytopenia, unspecified; R79.89 Other specified abnormal findings of blood chemistry; T45.1X5A Adverse effect of antineoplastic and immunosuppressive drugs, initial encounter; D50.8 Other iron deficiency anemias
CPT/HCPCS: 36415; 80053; 85007; 85027

== ENCOUNTER 2022-06-09 08:21 | Outpatient (CLI) | payer BC ==
[2022-06-09 08:58] LABS: PLATELET COUNT 30 K/uL (152-353)
[2022-06-09 09:12] LABS: POTASSIUM 4.2 mmol/L (3.6-5.2)
== END 2022-06-09 18:48 | disposition home or self-care (01) ==
LOC: LABW 08:21
PROVIDERS: ATTEND Nurse Practitioner Family
DX: D46.9 Myelodysplastic syndrome, unspecified (principal); D50.8 Other iron deficiency anemias; R79.89 Other specified abnormal findings of blood chemistry; T45.1X5A Adverse effect of antineoplastic and immunosuppressive drugs, initial encounter; D69.6 Thrombocytopenia, unspecified; D61.9 Aplastic anemia, unspecified; R74.01 Elevation of levels of liver transaminase levels; D69.3 Immune thrombocytopenic purpura; R16.2 Hepatomegaly with splenomegaly, not elsewhere classified; R53.81 Other malaise; E53.8 Deficiency of other specified B group vitamins
CPT/HCPCS: 36415; 80053; 80158; 85027

== ENCOUNTER 2022-06-16 08:46 | Outpatient (CLI) | payer BC ==
[2022-06-16 09:14] LABS: POTASSIUM 4.4 mmol/L (3.6-5.2)
[2022-06-16 09:23] LABS: PLATELET COUNT 37 K/uL (152-353)
== END 2022-06-16 19:49 | disposition home or self-care (01) ==
LOC: LABW 08:46
PROVIDERS: ATTEND Nurse Practitioner Family
DX: D46.9 Myelodysplastic syndrome, unspecified (principal); D50.8 Other iron deficiency anemias; R79.89 Other specified abnormal findings of blood chemistry; T45.1X5A Adverse effect of antineoplastic and immunosuppressive drugs, initial encounter; D69.6 Thrombocytopenia, unspecified; D61.9 Aplastic anemia, unspecified; R74.01 Elevation of levels of liver transaminase levels; D69.3 Immune thrombocytopenic purpura; R16.2 Hepatomegaly with splenomegaly, not elsewhere classified; R53.81 Other malaise; E53.8 Deficiency of other specified B group vitamins
CPT/HCPCS: 36415; 80053; 80158; 85007; 85027

== ENCOUNTER 2022-06-23 08:01 | Outpatient (CLI) | payer BC ==
[2022-06-23 08:19] LABS: PLATELET COUNT 40 K/uL (152-353)
[2022-06-23 08:27] LABS: POTASSIUM 4.6 mmol/L (3.6-5.2)
== END 2022-06-23 18:52 | disposition home or self-care (01) ==
LOC: LABW 08:01
PROVIDERS: ATTEND Nurse Practitioner Family
DX: D46.9 Myelodysplastic syndrome, unspecified (principal); D50.8 Other iron deficiency anemias; R79.89 Other specified abnormal findings of blood chemistry; T45.1X5A Adverse effect of antineoplastic and immunosuppressive drugs, initial encounter; D69.6 Thrombocytopenia, unspecified; D61.9 Aplastic anemia, unspecified; R74.01 Elevation of levels of liver transaminase levels; D69.3 Immune thrombocytopenic purpura; R16.2 Hepatomegaly with splenomegaly, not elsewhere classified; R53.81 Other malaise; E53.8 Deficiency of other specified B group vitamins
CPT/HCPCS: 36415; 80053; 80158; 85027

== ENCOUNTER 2022-06-30 08:21 | Outpatient (CLI) | payer BC ==
[2022-06-30 08:44] LABS: PLATELET COUNT 46 K/uL (152-353)
[2022-06-30 08:47] LABS: POTASSIUM 4.6 mmol/L (3.6-5.2)
== END 2022-06-30 19:20 | disposition home or self-care (01) ==
LOC: LABW 08:21
PROVIDERS: ATTEND Nurse Practitioner Family
DX: D46.9 Myelodysplastic syndrome, unspecified (principal); D50.8 Other iron deficiency anemias; R79.89 Other specified abnormal findings of blood chemistry; T45.1X5A Adverse effect of antineoplastic and immunosuppressive drugs, initial encounter; D69.6 Thrombocytopenia, unspecified; D61.9 Aplastic anemia, unspecified; R74.01 Elevation of levels of liver transaminase levels; D69.3 Immune thrombocytopenic purpura; R16.2 Hepatomegaly with splenomegaly, not elsewhere classified; R53.81 Other malaise; E53.8 Deficiency of other specified B group vitamins
CPT/HCPCS: 36415; 80053; 80158; 85027

== ENCOUNTER 2022-07-14 07:31 | Outpatient (CLI) | payer BC ==
[2022-07-14 07:48] LABS: PLATELET COUNT 54 K/uL (152-353)
[2022-07-14 08:11] LABS: POTASSIUM 4.3 mmol/L (3.6-5.2)
== END 2022-07-14 19:59 | disposition home or self-care (01) ==
LOC: LABW 07:31
PROVIDERS: ATTEND Nurse Practitioner Family
DX: D46.9 Myelodysplastic syndrome, unspecified (principal); D50.8 Other iron deficiency anemias; R79.89 Other specified abnormal findings of blood chemistry; T45.1X5A Adverse effect of antineoplastic and immunosuppressive drugs, initial encounter; D69.6 Thrombocytopenia, unspecified; D61.9 Aplastic anemia, unspecified; R74.01 Elevation of levels of liver transaminase levels; D69.3 Immune thrombocytopenic purpura; R16.2 Hepatomegaly with splenomegaly, not elsewhere classified; R53.81 Other malaise; E53.8 Deficiency of other specified B group vitamins
CPT/HCPCS: 36415; 80053; 80061; 80158; 81002; 83036; 84436; 84443; 85027

== ENCOUNTER 2022-07-28 07:57 | Outpatient (CLI) | payer BC ==
[2022-07-28 08:27] LABS: POTASSIUM 4.5 mmol/L (3.6-5.2)
[2022-07-28 16:21] LABS: PLATELET COUNT 32 K/uL (152-353)
== END 2022-07-28 18:55 | disposition home or self-care (01) ==
LOC: LAB 07:57
PROVIDERS: ATTEND Nurse Practitioner Family
DX: D46.9 Myelodysplastic syndrome, unspecified (principal); D50.8 Other iron deficiency anemias; R79.89 Other specified abnormal findings of blood chemistry; T45.1X5A Adverse effect of antineoplastic and immunosuppressive drugs, initial encounter; D69.6 Thrombocytopenia, unspecified; D61.9 Aplastic anemia, unspecified; R74.01 Elevation of levels of liver transaminase levels; D69.3 Immune thrombocytopenic purpura; R16.2 Hepatomegaly with splenomegaly, not elsewhere classified; R53.81 Other malaise; E53.8 Deficiency of other specified B group vitamins
CPT/HCPCS: 36415; 80053; 80158; 85027

== ENCOUNTER 2022-08-11 07:43 | Outpatient (CLI) | payer BC ==
[2022-08-11 09:36] LABS: PLATELET COUNT 40 K/uL (152-353)
[2022-08-11 09:43] LABS: POTASSIUM 3.9 mmol/L (3.6-5.2)
== END 2022-08-11 18:55 | disposition home or self-care (01) ==
LOC: LABW 07:43
PROVIDERS: ATTEND Nurse Practitioner Family
DX: D46.9 Myelodysplastic syndrome, unspecified (principal); D50.8 Other iron deficiency anemias; R79.89 Other specified abnormal findings of blood chemistry; T45.1X5A Adverse effect of antineoplastic and immunosuppressive drugs, initial encounter; D69.6 Thrombocytopenia, unspecified; D61.9 Aplastic anemia, unspecified; R74.01 Elevation of levels of liver transaminase levels; D69.3 Immune thrombocytopenic purpura; R16.2 Hepatomegaly with splenomegaly, not elsewhere classified; R53.81 Other malaise; E53.8 Deficiency of other specified B group vitamins
CPT/HCPCS: 36415; 80053; 80158; 85027

== ENCOUNTER → 2022-08-19 | Outpatient (CLI) | payer BC | LOC: LABW 13:35 | PROVIDERS: ATTEND Nurse Practitioner Family | DX: D46.9 Myelodysplastic syndrome, unspecified (principal); E53.8 Deficiency of other specified B group vitamins; R16.2 Hepatomegaly with splenomegaly, not elsewhere classified; R53.81 Other malaise; D69.3 Immune thrombocytopenic purpura; R74.01 Elevation of levels of liver transaminase levels; D61.9 Aplastic anemia, unspecified; D69.6 Thrombocytopenia, unspecified; R79.89 Other specified abnormal findings of blood chemistry; T45.1X5A Adverse effect of antineoplastic and immunosuppressive drugs, initial encounter | CPT/HCPCS: 36415; 82607; 82728; 83540; 83550 ==

== ENCOUNTER 2022-08-25 07:58 | Outpatient (CLI) | payer BC ==
[2022-08-25 08:24] LABS: PLATELET COUNT 39 K/uL (152-353)
[2022-08-25 08:25] LABS: POTASSIUM 3.9 mmol/L (3.6-5.2)
== END 2022-08-25 19:36 | disposition home or self-care (01) ==
LOC: LABW 07:58
PROVIDERS: ATTEND Nurse Practitioner Family
DX: D46.9 Myelodysplastic syndrome, unspecified (principal); D50.8 Other iron deficiency anemias; R79.89 Other specified abnormal findings of blood chemistry; T45.1X5A Adverse effect of antineoplastic and immunosuppressive drugs, initial encounter; D69.6 Thrombocytopenia, unspecified; D61.9 Aplastic anemia, unspecified; R74.01 Elevation of levels of liver transaminase levels; D69.3 Immune thrombocytopenic purpura; R16.2 Hepatomegaly with splenomegaly, not elsewhere classified; R53.81 Other malaise; E53.8 Deficiency of other specified B group vitamins
CPT/HCPCS: 36415; 80053; 80158; 85027

== ENCOUNTER 2022-09-08 09:57 | Outpatient (CLI) | payer BC ==
[2022-09-08 10:13] LABS: PLATELET COUNT 57 K/uL (152-353)
== END 2022-09-08 20:27 | disposition home or self-care (01) ==
LOC: LABW 09:57
PROVIDERS: ATTEND Nurse Practitioner Family
DX: D46.9 Myelodysplastic syndrome, unspecified (principal); D50.8 Other iron deficiency anemias; R79.89 Other specified abnormal findings of blood chemistry; T45.1X5A Adverse effect of antineoplastic and immunosuppressive drugs, initial encounter; D69.6 Thrombocytopenia, unspecified; D61.9 Aplastic anemia, unspecified; R74.01 Elevation of levels of liver transaminase levels; D69.3 Immune thrombocytopenic purpura; R16.2 Hepatomegaly with splenomegaly, not elsewhere classified; R53.81 Other malaise; E53.8 Deficiency of other specified B group vitamins
CPT/HCPCS: 36415; 80053; 80158; 85027

== ENCOUNTER 2022-09-22 07:57 | Outpatient (CLI) | payer BC ==
[2022-09-22 08:10] LABS: PLATELET COUNT 63 K/uL (152-353)
[2022-09-22 08:35] LABS: POTASSIUM 4.2 mmol/L (3.6-5.2)
== END 2022-09-22 19:33 | disposition home or self-care (01) ==
LOC: LABW 07:57
PROVIDERS: ATTEND Nurse Practitioner Family
DX: D46.9 Myelodysplastic syndrome, unspecified (principal); E53.8 Deficiency of other specified B group vitamins; R16.2 Hepatomegaly with splenomegaly, not elsewhere classified; R53.81 Other malaise; D69.3 Immune thrombocytopenic purpura; R74.01 Elevation of levels of liver transaminase levels; D61.9 Aplastic anemia, unspecified; D69.6 Thrombocytopenia, unspecified; R79.89 Other specified abnormal findings of blood chemistry; T45.1X5A Adverse effect of antineoplastic and immunosuppressive drugs, initial encounter
CPT/HCPCS: 36415; 80053; 80158; 85007; 85027

== ENCOUNTER 2022-10-14 10:10 | Outpatient (CLI) | payer BC ==
[2022-10-14 10:44] LABS: PLATELET COUNT 35 K/uL (152-353)
== END 2022-10-14 22:19 | disposition home or self-care (01) ==
LOC: LABW 10:10
PROVIDERS: ATTEND Nurse Practitioner Family
DX: D46.9 Myelodysplastic syndrome, unspecified (principal); E53.8 Deficiency of other specified B group vitamins; R16.2 Hepatomegaly with splenomegaly, not elsewhere classified; R53.81 Other malaise; D69.3 Immune thrombocytopenic purpura; R74.01 Elevation of levels of liver transaminase levels; D61.9 Aplastic anemia, unspecified; D69.6 Thrombocytopenia, unspecified; R79.89 Other specified abnormal findings of blood chemistry; T45.1X5A Adverse effect of antineoplastic and immunosuppressive drugs, initial encounter; D50.8 Other iron deficiency anemias
CPT/HCPCS: 36415; 80053; 80158; 85027

== ENCOUNTER 2023-02-12 07:58 | Outpatient (CLI) | payer BC | END 2023-02-12 17:00 | disposition home or self-care (01) | LOC: RESP 07:58 | PROVIDERS: ATTEND Internal Medicine Hematology & Oncology | DX: D46.9 Myelodysplastic syndrome, unspecified (principal); D50.8 Other iron deficiency anemias; R79.89 Other specified abnormal findings of blood chemistry; T45.1X5A Adverse effect of antineoplastic and immunosuppressive drugs, initial encounter; D69.6 Thrombocytopenia, unspecified; D61.9 Aplastic anemia, unspecified; R74.01 Elevation of levels of liver transaminase levels; D69.3 Immune thrombocytopenic purpura; R16.2 Hepatomegaly with splenomegaly, not elsewhere classified; R53.81 Other malaise; E53.8 Deficiency of other specified B group vitamins | CPT/HCPCS: 93005 ==

== ENCOUNTER 2023-02-17 08:29 | Outpatient (CLI) | payer BC ==
[2023-02-17 08:39] LABS: PLATELET COUNT 73 K/uL (152-353)
== END 2023-02-17 19:17 ==
LOC: LABW 08:29
PROVIDERS: ATTEND Nurse Practitioner Family
DX: D46.9 Myelodysplastic syndrome, unspecified (principal); D50.8 Other iron deficiency anemias; R79.89 Other specified abnormal findings of blood chemistry; T45.1X5A Adverse effect of antineoplastic and immunosuppressive drugs, initial encounter; D69.6 Thrombocytopenia, unspecified; D61.9 Aplastic anemia, unspecified; R74.01 Elevation of levels of liver transaminase levels; D69.3 Immune thrombocytopenic purpura; R16.2 Hepatomegaly with splenomegaly, not elsewhere classified; R53.81 Other malaise; E53.8 Deficiency of other specified B group vitamins
CPT/HCPCS: 36415; 85007; 85027

== ENCOUNTER 2023-02-24 13:24 | Outpatient (CLI) | payer BC ==
[2023-02-24 13:54] LABS: PLATELET COUNT 59 K/uL (152-353)
[2023-02-24 14:13] LABS: POTASSIUM 4.2 mmol/L (3.6-5.2)
== END 2023-02-24 19:02 | disposition home or self-care (01) ==
LOC: LABW 13:24
PROVIDERS: ATTEND Internal Medicine Hematology & Oncology
DX: D46.9 Myelodysplastic syndrome, unspecified (principal); D50.8 Other iron deficiency anemias; R79.89 Other specified abnormal findings of blood chemistry; T45.1X5A Adverse effect of antineoplastic and immunosuppressive drugs, initial encounter; D69.6 Thrombocytopenia, unspecified; D61.9 Aplastic anemia, unspecified; R74.01 Elevation of levels of liver transaminase levels; D69.3 Immune thrombocytopenic purpura; R16.2 Hepatomegaly with splenomegaly, not elsewhere classified; R53.81 Other malaise; E53.8 Deficiency of other specified B group vitamins
CPT/HCPCS: 36415; 80053; 85027

== ENCOUNTER 2023-03-27 14:50 | Outpatient (CLI) | payer BC ==
[2023-03-27 15:11] LABS: PLATELET COUNT 52 K/uL (152-353)
[2023-03-27 15:32] LABS: POTASSIUM 4.2 mmol/L (3.6-5.2)
== END 2023-03-27 19:30 | disposition home or self-care (01) ==
LOC: LABW 14:50
PROVIDERS: ATTEND Nurse Practitioner Family
DX: D46.9 Myelodysplastic syndrome, unspecified (principal); E53.8 Deficiency of other specified B group vitamins; R16.2 Hepatomegaly with splenomegaly, not elsewhere classified; R53.81 Other malaise; D69.3 Immune thrombocytopenic purpura; R74.01 Elevation of levels of liver transaminase levels; D61.9 Aplastic anemia, unspecified; D69.6 Thrombocytopenia, unspecified; R79.89 Other specified abnormal findings of blood chemistry; T45.1X5A Adverse effect of antineoplastic and immunosuppressive drugs, initial encounter; D50.8 Other iron deficiency anemias
CPT/HCPCS: 36415; 80053; 84439; 84443; 84480; 85027

== ENCOUNTER 2023-05-26 15:04 | Outpatient (CLI) | payer BC ==
[2023-05-26 15:37] LABS: PLATELET COUNT 43 K/uL (152-353)
[2023-05-26 16:10] LABS: POTASSIUM 4.3 mmol/L (3.6-5.2)
== END 2023-05-26 20:26 | disposition home or self-care (01) ==
LOC: LABW 15:04
PROVIDERS: ATTEND Internal Medicine Hematology & Oncology
DX: D46.9 Myelodysplastic syndrome, unspecified (principal); E53.8 Deficiency of other specified B group vitamins; R16.2 Hepatomegaly with splenomegaly, not elsewhere classified; R53.81 Other malaise; D69.3 Immune thrombocytopenic purpura; R74.01 Elevation of levels of liver transaminase levels; D61.9 Aplastic anemia, unspecified; D69.6 Thrombocytopenia, unspecified; R79.89 Other specified abnormal findings of blood chemistry; T45.1X5A Adverse effect of antineoplastic and immunosuppressive drugs, initial encounter; D50.8 Other iron deficiency anemias
CPT/HCPCS: 36415; 80053; 85027

== ENCOUNTER 2023-06-02 07:31 | Outpatient (CLI) | payer BC ==
[2023-06-02 08:04] LABS: PLATELET COUNT 50 K/uL (152-353)
== END 2023-06-02 18:51 | disposition home or self-care (01) ==
LOC: LABW 07:31
PROVIDERS: ATTEND Internal Medicine Hematology & Oncology
DX: D46.9 Myelodysplastic syndrome, unspecified (principal); E53.8 Deficiency of other specified B group vitamins; R16.2 Hepatomegaly with splenomegaly, not elsewhere classified; R53.81 Other malaise; D69.3 Immune thrombocytopenic purpura; R74.01 Elevation of levels of liver transaminase levels; D61.9 Aplastic anemia, unspecified; D69.6 Thrombocytopenia, unspecified; R79.89 Other specified abnormal findings of blood chemistry; T45.1X5A Adverse effect of antineoplastic and immunosuppressive drugs, initial encounter; D50.8 Other iron deficiency anemias
CPT/HCPCS: 36415; 80053; 85027